=== PATIENT | female | born 2000 | race American Indian/Alaskan Native ===

== ENCOUNTER 2020-10-24 05:59 | Emergency (ER) | payer SELFPAY ==
[2020-10-24 06:07] VITALS: BP 134/82
[2020-10-24] MEDS ORDERED: ALBUTEROL 2.5 MG/3 ML NEBU IH ONE (06:08)
[2020-10-24] MEDS ORDERED: predniSONE 20 MG TAB PO ONE (06:08)
--- NOTE | 2020-10-24 06:11 | Event Note ---
ED Screening Note Date of service: 10/24/20 Time: 06:09 ED Screening Note: pt is a 20 y/o aaf with hx of asthma , states she is having sob and wheezing x 2 days worse yesterday and she is out of albuterol inhaler which she uses prn. Symptoms are rated as 4/10 at this time, and include sob, and exp wheezing. Symptoms are exacerbated by environmental exposure, symptoms are relieved by nothing. This initial assessment/diagnostic orders/clinical plan/treatment(s) is/are subject to change based on patients health status, clinical progression and re- assessment by fellow clinical providers in the ED. Further treatment and workup at subsequent clinical providers discretion. Patient/guardian urged not to elope from the ED as their condition may be serious if not clinically assessed and managed. Initial orders include:
--- NOTE | 2020-10-24 06:26 | Emergency Department Report ---
ED General Adult HPI - General Chief complaint: Dyspnea/Respdistress Stated complaint: ASTHMA Source: patient Mode of arrival: Ambulatory Limitations: No Limitations - History of Present Illness Initial comments: Pt is a 20 y/o aaf with hx of asthma , states she is having sob and wheezing x 2 days worse yesterday and she is out of albuterol inhaler which she uses prn. Symptoms are rated as 4/10 at this time, and include sob, and exp wheezing. Symptoms are exacerbated by environmental exposure, symptoms are relieved by nothing. - Related Data Previous Rx's Medication Instructions Recorded Last Taken Type Albuterol Mdi (or & Nicu Only) 2 puff IH QID PRN #8.5 gram 10/24/20 Unknown Rx [ProAir HFA Inhaler] predniSONE [Deltasone] 40 mg PO QDAY 5 Days #10 tab 10/24/20 Unknown Rx Allergies Allergy/AdvReac Type Severity Reaction Status Date / Time No Known Allergies Allergy Verified 10/24/20 06:06 ED Review of Systems ROS: Stated complaint: ASTHMA Other details as noted in HPI Constitutional: denies: chills, fever Eyes: denies: eye pain, eye discharge, vision change ENT: denies: ear pain, throat pain Respiratory: cough, shortness of breath, wheezing Cardiovascular: denies: chest pain, palpitations Endocrine: no symptoms reported Gastrointestinal: denies: abdominal pain, nausea, diarrhea Genitourinary: denies: urgency, dysuria, discharge Musculoskeletal: denies: back pain, joint swelling, arthralgia Skin: denies: rash, lesions Neurological: denies: headache, weakness, paresthesias Psychiatric: denies: anxiety, depression Hematological/Lymphatic: denies: easy bleeding, easy bruising ED Past Medical Hx - Past Medical History Previous Medical History?: Yes Hx Asthma: Yes - Surgical History Past Surgical History?: No - Social History Smoking Status: Never Smoker Substance Use Type: None - Medications Home Medications: Home Medications Medication Instructions Recorded Confirmed Last Taken Type Albuterol Mdi (or & Nicu Only) 2 puff IH QID PRN #8.5 gram 10/24/20 Unknown Rx [ProAir HFA Inhaler] predniSONE [Deltasone] 40 mg PO QDAY 5 Days #10 tab 10/24/20 Unknown Rx ED Physical Exam - General Limitations: No Limitations General appearance: alert, in no apparent distress - Head Head exam: Present: atraumatic, normocephalic - Eye Eye exam: Present: normal appearance, EOMI Pupils: Present: normal accommodation - ENT ENT exam: Present: mucous membranes moist - Neck Neck exam: Present: normal inspection, full ROM. Absent: tenderness - Respiratory Respiratory exam: Present: normal lung sounds bilaterally, wheezes (mild bilat anterior expiratory wheezing ). Absent: respiratory distress, rales, rhonchi, stridor, chest wall tenderness - Cardiovascular Cardiovascular Exam: Present: regular rate, normal rhythm, normal heart sounds. Absent: systolic murmur, diastolic murmur, rubs, gallop - GI/Abdominal GI/Abdominal exam: Present: soft, normal bowel sounds. Absent: distended, tenderness - Rectal Rectal exam: Present: deferred - Extremities Exam Extremities exam: Present: normal inspection - Back Exam Back exam: Present: normal inspection, full ROM. Absent: tenderness - Neurological Exam Neurological exam: Present: alert, oriented X3, CN II-XII intact, normal gait - Psychiatric Psychiatric exam: Present: normal affect, normal mood - Skin Skin exam: Present: warm, dry, intact, normal color. Absent: rash ED Course Vital Signs 10/24/20 06:02 Temperature 98.0 F Pulse Rate 87 Respiratory 18 Rate Blood Pressure 134/82 O2 Sat by Pulse 96 Oximetry ED Medical Decision Making - Medical Decision Making this is straight forward asthma, with mild exp wheezing, plan: short burst prednisone, refill albuterol. follow up with pcp , pt verbalized understanding of same , pt dc'd to home in stable condition at this time with no resp distress, pt is a/o x 3 ambulatory with steady gait. Critical care attestation.: If time is entered above; I have spent that time in minutes in the direct care of this critically ill patient, excluding procedure time. ED Disposition Clinical Impression: Asthma Qualifiers: Asthma severity: mild Asthma persistence: intermittent Asthma complication type: uncomplicated Qualified Code(s): J45.20 - Mild intermittent asthma, uncomplicated Disposition: DC-01 TO HOME OR SELFCARE Is pt being admited?: No Does the pt Need Aspirin: No Condition: Stable Instructions: Asthma (ED), Asthma Attack Prevention, Adult Additional Instructions: follow up with your doctor in 2-3, return to emergency if symptoms worsen. Prescriptions: predniSONE [Deltasone] 40 mg PO QDAY 5 Days #10 tab Albuterol Mdi (or & Nicu Only) [ProAir HFA Inhaler] 2 puff IH QID PRN #8.5 gram PRN Reason: Shortness Of Breath Referrals: DEZ BOUCHER MD [Staff Physician] - 3-5 Days Forms: Work/School Release Form(ED) Time of Disposition: 06:27
== END 2020-10-24 07:15 | disposition home or self-care (01) ==
LOC: ED 05:59
DX: J45.909 Unspecified asthma, uncomplicated (principal); Z79.899 Other long term (current) drug therapy
CPT/HCPCS: 94640; 99282; J7512

== ENCOUNTER 2022-01-26 11:40 | Inpatient (IN) | payer MEDICAID ==
[2022-01-26] MEDS ORDERED: LACTATED RINGERS 1,000 ML ONE (13:06)
[2022-01-26] MEDS ORDERED: TERBUTALINE 1 MG/1 ML INJ SUB-Q PRN (13:47)
[2022-01-26] MEDS ORDERED: LOPERAMIDE 2 MG CAP PO PRN (13:47)
[2022-01-26] MEDS ORDERED: ePHEDrine SULFATE 50 MG/1 ML INJ IV PRN (13:47)
[2022-01-26] MEDS ORDERED: miSOPROStol 200 MCG TAB PR PRN (13:47)
[2022-01-26] MEDS ORDERED: MINERAL OIL 30 ML ORAL LIQD PO PRN (13:47)
[2022-01-26] MEDS ORDERED: CARBOPROST TROMETHAMINE 250 MCG/1 ML INJ IM PRN (13:47)
[2022-01-26] MEDS ORDERED: NALOXONE 0.4 MG/1 ML INJ IV PRN ×2 (13:47→17:04)
[2022-01-26] MEDS ORDERED: BUTORPHANOL 2 MG/1 ML INJ IV PRN ×2 (13:47)
[2022-01-26] MEDS ORDERED: METHYLERGONOVINE MALEATE 0.2 MG/ML VIAL IM PRN (13:47)
[2022-01-26] MEDS ORDERED: PROMETHAZINE 25 MG TAB PO PRN (13:47)
[2022-01-26] MEDS ORDERED: OXYTOCIN 10 UNIT/1 ML INJ IM PRN (13:47)
[2022-01-26] MEDS ORDERED: ONDANSETRON 4 MG/2 ML INJ IV PRN ×2 (13:47→17:04)
[2022-01-26] MEDS ORDERED: ACETAMINOPHEN 325 MG TAB PO PRN ×2 (13:47→17:04)
--- NOTE | 2022-01-26 13:59 | History and Physical Report ---
History of Present Illness Date of examination: 01/26/22 Date of admission: 01/26/2022 Chief complaint: labor contractions Past History Past Medical History: asthma Past Surgical History: no surgical history Family/Genetic History: diabetes Social history: no significant social history - Obstetrical History Expected Date of Delivery: 02/02/22 Actual Gestation: 39 Week(s) 0 Day(s) : 1 Medications and Allergies Allergies Allergy/AdvReac Type Severity Reaction Status Date / Time No Known Allergies Allergy Verified 01/26/22 13:07 Home Medications Medication Instructions Recorded Confirmed Last Taken Type Albuterol Mdi (or & Nicu Only) 2 puff IH QID PRN #8.5 gram 10/24/20 Unknown Rx [ProAir HFA Inhaler] predniSONE [Deltasone] 40 mg PO QDAY 5 Days #10 tab 10/24/20 Unknown Rx - Vital Signs Vital signs: Vital Signs Pulse BP Pulse Ox 88 121/76 94 01/26/22 12:02 01/26/22 12:02 01/26/22 12:02 Temp Pulse Resp BP Pulse Ox 98.2 F 104 H 16 121/76 100 01/26/22 13:20 01/26/22 13:52 01/26/22 13:20 01/26/22 12:03 01/26/22 13:52 - Physical Exam Breasts: Positive: deferred Cardiovascular: Regular rate Lungs: Positive: Clear to auscultation Abdomen: Positive: normal appearance (gravid) Genitourinary (Female): Positive: normal external genitalia Vulva: both: normal Vagina: Positive: normal moisture Anus/Rectum: Positive: normal perianal skin Extremities: Positive: normal - Obstetrical FHR: category 2 Uterine Contraction Monitor Mode: External Cervical Dilatation: 6 Cervical Effacement Percentage: 90 station: -2 Uterine Contraction Pattern: Irregular Uterine Contraction Intensity: Strong/Firm Results Result Diagrams: 01/26/22 13:25 All other labs normal. Assessment and Plan A: IUP at 39.0 wks spontaneous labor GBS neg Hx of Asthma ( no attack in over a year) Active labor Pain not well controlled P: Admit EFM/TOCO IV fluid and medication for pain
[2022-01-26] MEDS ORDERED: OXYTOCIN DRIP 30 UNITS/500 ML BAG IV SCH ×4 (14:00→18:00)
[2022-01-26] MEDS: LACTATED RINGERS 1,000 ML IV SCH ×3 (14:09→18:41)
[2022-01-26] MEDS ORDERED: SODIUM CHLORIDE 0.9% 1000 ML 1,000 ML ONE (14:10)
[2022-01-26 14:36] LABS: Hemoglobin 11.5 gm/dl (10.1-14.3); Mean Corpuscular HGB Conc 33 % (30-34); Mean Corpuscular Volume 85 fl (79-97); Platelet Count 202 K/mm3 (140-440); Red Blood Count 4.14 M/mm3 (3.65-5.03); Red Cell Distribution Width 14.3 % (13.2-15.2)
[2022-01-26] MEDS ORDERED: LIDOCAINE (2%) 20 MG/1 ML VIAL 20 ML MDV INFILTRATI ONE (15:00)
--- NOTE | 2022-01-26 15:18 | Anesthesia Consultation ---
Anesthesia Consult and Med Hx Date of service: 01/26/22 - Airway Anesthetic Teeth Evaluation: Good ROM Head & Neck: Adequate Mental/Hyoid Distance: Adequate Mallampati Class: Class II Intubation Access Assessment: Probably Good - Pulmonary Exam CTA: Yes - Cardiac Exam Cardiac Exam: RRR - Pre-Operative Health Status ASA Pre-Surgery Classification: ASA3 Proposed Anesthetic Plan: Spinal - Pulmonary Hx Asthma: Yes (2 yrs ago) COPD: No Hx Pneumonia: No - Cardiovascular System Hx Hypertension: No - Central Nervous System Hx Seizures: No Hx Psychiatric Problems: No - Endocrine Hx Renal Disease: No Hx End Stage Renal Disease: No Hx Hypothyroidism: No Hx Hyperthyroidism: No - Hematic Hx Sickle Cell Disease: No - Other Systems Hx Obesity: Yes
--- NOTE | 2022-01-26 15:21 | Anesthesia Day of Surgery ---
Anesthesia Day of Surgery - Day of Surgery Patient Examined: Yes Patient H&P Reviewed: Yes Patient is NPO: No (Had over 8 oz of water at 1300) Beta Blockers: No Ludin's Test: N/A
[2022-01-26] MEDS ORDERED: LACTATED RINGERS 1,000 ML IV SCH (15:30)
--- NOTE | 2022-01-26 15:30 | Event Note ---
Date: 01/26/22 Called in due to variable decels and thick meconium. Overall variability good. Patient is 5ft 1inch tall. Clinical size more than 7.5 lbs. 8cm dilated. Station 0+1, boderline pelvis. Patient unable to follow instructions, including getting an epidural. Prospects of a successful vaginal delivery are very low. Plan: For delivery.
[2022-01-26] MEDS ORDERED: propofoL 200 MG/20 ML VIAL IV ONE (15:32)
[2022-01-26] MEDS ORDERED: ROCURONIUM 50 MG/5 ML INJ IV ONE (15:32)
[2022-01-26] MEDS ORDERED: PHENYLEPHRINE/NS 1,000 MCG/10 ML SYRINGE (OR USE) IV ONE (15:32)
[2022-01-26] MEDS ORDERED: LIDOCAINE PF 100 MG/5 ML (CARDIAC SYRINGE) IV ONE (15:32)
[2022-01-26] MEDS ORDERED: SUCCINYLCHOLINE CHLORIDE 200 MG/10 ML INJ MDV ONE (15:32)
[2022-01-26] MEDS ORDERED: ONDANSETRON 4 MG/2 ML INJ ONE (15:32)
[2022-01-26] MEDS ORDERED: ePHEDrine SULFATE 50 MG/1 ML INJ ONE (15:32)
[2022-01-26] MEDS ORDERED: dexAMETHasone 20 MG/5 ML VIAL ONE (15:32)
[2022-01-26] MEDS ORDERED: BICITRA ORAL LIQD 30ML PO ONE (16:00)
[2022-01-26] MEDS ORDERED: METOCLOPRAMIDE 10 MG/2 ML INJ IV ONE (16:00)
[2022-01-26] MEDS ORDERED: ceFAZolin/Water 2 GM/20 ML 2 GM/20 ML SYRINGE IV NR (16:00)
[2022-01-26] MEDS ORDERED: FAMOTIDINE 20 MG/2 ML INJ IV ONE (16:00)
[2022-01-26] MEDS ORDERED: SODIUM CHLORIDE 0.9% IRR 1,500 ML BOTTLE IR ONE (16:05)
[2022-01-26] MEDS ORDERED: WATER FOR IRRIG STERILE 1,500 ML BOTTLE IR ONE (16:05)
[2022-01-26] MEDS ORDERED: ceFAZolin/STERILE WATER 2 GM/20 ML SYRINGE IV ONE (16:05)
[2022-01-26] MEDS ORDERED: WITCH HAZEL/ GLYCERIN PAD TP PRN (17:04)
[2022-01-26] MEDS ORDERED: KETOROLAC 30 MG/1 ML INJ IV PRN (17:04)
[2022-01-26] MEDS ORDERED: MORPHINE 4 MG/1 ML INJ IV PRN (17:04)
[2022-01-26] MEDS ORDERED: IBUPROFEN 600 MG TAB PO PRN (17:04)
[2022-01-26] MEDS ORDERED: LANOLIN/ZINC/DIMETHICONE (LANSINOH) 7 GM TP PRN (17:04)
--- NOTE | 2022-01-26 17:12 | Operative Report ---
Operative Report Operative Report: Date of surgery: January 27, 2020 Preoperative diagnoses: intolerance of labor, short stature, cephalopelvic disproportion Postoperative diagnoses: The same. Operation: Lower segment transverse delivery Surgeon:Audie Piedra MD Leaf Binner: Jorge Harper CRNA Anesthesia: Spinal block Estimated blood loss:410 mL Complications: None Findings: There was a live baby boy in occiput posterior. weight 6 pounds 9 ounces. Apgars 8/9. The amniotic fluid was thick with meconium. The ovaries and fallopian tubes as well as the uterus were grossly normal. Procedure in detail: The patient was taken to the operating room and given a spinal block. Patient was placed in the straight supine position and a Schaefer catheter was inserted. The patient was prepped in the abdomen. The drapes were placed. A timeout was done. With the go ahead from the gospel worker, a Pfannenstiel incision was made. This incision was carried across the subcutaneous layer to the fascia which was also divided transversely. The recti abdominis muscle flaps were stripped from the fascia using a combination of blunt and sharp dissections. The muscles were in the midline to gain access to the anterior parietal peritoneum which was divided after excluding any underlying viscera. The access to the p eritoneal cavity was then widened by manual stretching. The bladder blade was applied. The utero vesicle peritoneal flap was divided transversely allowing the bladder to be displaced caudally. The uterine incision was placed in the lower segment transversely. The uterine incision was carried to the decidual layer. The uterine incision was extended on both sides using the bandage scissors. The amniotic sac was ruptured with clear fluid. The head was lifted out of the false maternal pelvis and delivered through the incision using fundal pressure. The airways were bulb suctioned beginning with the mouth. Continuing fundal pressure combined with traction on the mandibular processes of the jaw delivered the rest of the baby. The umbilical cord was double clamped and divided. The baby was carefully transferred to the pediatric team. The placenta was manually removed from the uterine cavity. The uterine cavity was explored and was empty of any placental remnants. The uterine incision was repaired in 2 layers with #1 Vicryl. The surgical line on the uterus was hemostatic. Blood and clots were cleared from the peritoneal cavity. The anterior parietal peritoneum was repaired with #1 Vicryl. The fascia was repaired with #1 Vicryl. The subcutaneous layer was made hemostatic using the Bovie before the skin was closed subcuticularly with 4-0 Vicryl. There were no complications. The estimated blood loss was 410 mL. All sponges and instrument counts were correct. Patient was safely transferred to the recovery room.
--- NOTE | 2022-01-26 17:36 | Progress Note ---
Spinal Anesthesia Block - Spinal Anesthesia Block Start Time: 15:55 Stop Time: 15:57 Performed by:: LILIYA MARROQUIN Procedure: Spinal H&P, labs were reviewed. Patient ID confirmed, all questions and concerns were answered, and consent was signed. Timeout was performed at bedside. Patient in sitting position. Sterile prep and drape was performed. 3ml of 1% lidocaine skin wheal at L3- L4 interspace. 24G PENCAN spinal needle was advanced. Clear CSF. Injected Bupivacaine 0.75% 1.6ml and 0.05ml of Precedex in the spinal space. Negative paresthesia, negative blood. Patient tolerated procedure. Pt placed in supine position with LEONCIO.
--- NOTE | 2022-01-26 17:52 | Event Note ---
Date: 01/26/22 (1500) Called into room for current decel and recent multiple variables. VE: 8cm/90/-2 BBW, AROM heavy meconium noted, ISE and IUPC placed, fluid bolus, O2 NR, and amnioinfusion. reassurance given to patient, informed of all procedures and why. Baby now recovering. Dr. Piedra called and informed
[2022-01-26] MEDS: MORPHINE 2 MG/1 ML INJ IV PRN (22:36)
[2022-01-27] MEDS: KETOROLAC 30 MG/1 ML INJ IV PRN ×2 (00:36→14:41)
[2022-01-27 05:41] LABS: Hematocrit 30.6 % (30.3-42.9); Hemoglobin 10.2 gm/dl (10.1-14.3)
[2022-01-27] MEDS: MORPHINE 2 MG/1 ML INJ IV PRN (08:41)
--- NOTE | 2022-01-27 09:41 | Progress Note ---
Assessment and Plan POD#1 C/S doing well. 1. Remove the dressing tomorrow and routine postop care 2. All questions encouraged and answered Subjective Date of service: 01/27/22 Principal diagnosis: POD#1 C/S Interval history: pt states her pain is controlled with meds. Pt admits to flatus. Tolerating diet. Voiding without difficulty. pt also trying to breast feed. Vag bleed less than a period Objective - Constitutional Vitals: Vital Signs - 12hr 01/26/22 01/27/22 01/27/22 22:36 00:36 00:58 Temperature 98.0 F Pulse Rate 89 Respiratory 16 18 20 Rate Blood Pressure 121/79 Blood Pressure [Right] O2 Sat by Pulse 98 Oximetry 01/27/22 01/27/22 01/27/22 04:20 08:13 08:41 Temperature 98.2 F 98.3 F Pulse Rate 92 H 95 H Respiratory 18 20 16 Rate Blood Pressure 119/76 Blood Pressure 132/68 [Right] O2 Sat by Pulse 100 97 Oximetry General appearance: Present: no acute distress - Neck Neck: normal ROM - Respiratory Respiratory effort: normal - Cardiovascular Rhythm: regular Extremities: No edema - Gastrointestinal General gastrointestinal: Present: soft, non-tender, other (Incision with Dressing C/D/I) - Genitourinary Female genitourinary: other (Fundus firm 1cm below the umbilicus; no tenderness. Lochia small) - Integumentary Integumentary: warm, dry - Neurologic Neurologic: moves all extremities - Psychiatric Psychiatric: cooperative - Labs CBC & Chem 7: 01/27/22 05:25 Labs: Abnormal lab results 01/26/22 Range/Units 13:25 WBC 12.1 H (4.5-11.0) K/mm3 Medications & Allergies - Medications Allergies/Adverse Reactions: Allergies No Known Allergies Allergy (Verified 01/26/22 13:07) Home Medications: Home Medications Medication Instructions Recorded Confirmed Last Taken Type Albuterol Mdi (or & Nicu Only) 2 puff IH QID PRN #8.5 gram 10/24/20 Unknown Rx [ProAir HFA Inhaler] predniSONE [Deltasone] 40 mg PO QDAY 5 Days #10 tab 10/24/20 Unknown Rx Active Medications: Generic Name Dose Route Start Last Admin Trade Name Freq PRN Reason Stop Dose Admin Acetaminophen 650 mg 01/26/22 17:04 Acetaminophen 325 Mg Tab PO Q4H PRN Fever >100.5/BROWNING Hydrocodone Bitart/Acetaminophen 1 each 01/26/22 17:04 Hydrocodone/Acetaminophen 5-325 Mg Tab PO Q6H PRN Pain, Moderate (4-6) Oxytocin/Sodium Chloride 30 units in 500 mls @ 40 mls/hr 01/26/22 18:00 Pitocin/Ns 30 Unit/500ml IV TITR ARIANA Protocol Ibuprofen 600 mg 01/26/22 17:04 Ibuprofen 600 Mg Tab PO Q6H PRN Pain, Mild (1-3) Ibuprofen 800 mg 01/26/22 17:04 Ibuprofen 800 Mg Tab PO Q6H PRN Pain, Moderate (4-6) Ketorolac Tromethamine 15 mg 01/26/22 17:04 Ketorolac 30 Mg/1 Ml Inj IV 01/31/22 17:03 Q6H PRN Pain, Mild (1-3) Ketorolac Tromethamine 30 mg 01/26/22 17:04 01/27/22 00:36 Ketorolac 30 Mg/1 Ml Inj IV 01/31/22 17:03 30 mg Q6H PRN Administration Pain, Moderate (4-6) Morphine Sulfate 4 mg 01/26/22 17:04 Morphine 4 Mg/1 Ml Inj IV Q4H PRN Pain , Severe (7-10) Morphine Sulfate 2 mg 01/26/22 17:04 01/27/22 08:41 Morphine 2 Mg/1 Ml Inj IV 2 mg Q4H PRN Administration Pain, Moderate (4-6) Multi-Ingredient Ointment 1 applic 01/26/22 17:04 Lanolin/Zinc/Dimethicone (Lansinoh) 7 Gm TP PRN PRN dryness/cracking Multivitamins/Iron/Calcium 1 each 01/27/22 10:00 [id number] Fumarate-Folic Acid Vit Tab PO QDAY ARIANA Naloxone HCl 0.1 mg 01/26/22 17:04 Naloxone 0.4 Mg/1 Ml Inj IV Q2MIN PRN Res Rate </= 8 or 02 SAT < 92% Ondansetron HCl 4 mg 01/26/22 17:04 Ondansetron 4 Mg/2 Ml Inj IV Q8H PRN Nausea And Vomiting Sodium Chloride 10 ml 01/26/22 18:00 Sodium Chloride 0.9% 10 Ml Flush Syringe IV 02/05/22 23:59 PRN NR Witch Sarah/Glycerin 1 each 01/26/22 17:04 Witch Sarah/ Glycerin Pad TP PRN PRN Hemorrhoids/cleansing/soothing
[2022-01-27] MEDS: PRENATAL VIT27-FE FUMARATE-FOLIC ACID VIT TAB PO SCH (09:50)
[2022-01-27] MEDS: HYDROcodone/ACETAMINOPHEN 5-325 MG TAB PO PRN ×2 (11:24→17:22)
[2022-01-27] MEDS: IBUPROFEN 800 MG TAB PO PRN (22:30)
[2022-01-28] MEDS: HYDROcodone/ACETAMINOPHEN 5-325 MG TAB PO PRN ×2 (05:54→12:02)
[2022-01-28] MEDS: IBUPROFEN 800 MG TAB PO PRN ×2 (09:17→17:14)
[2022-01-28] MEDS: PRENATAL VIT27-FE FUMARATE-FOLIC ACID VIT TAB PO SCH (12:02)
--- NOTE | 2022-01-28 15:59 | Progress Note ---
Assessment and Plan POD#2 C/S with moist steristrips and endomyometritis 1. Discussed with pt that I would recommend oral antibiotics, change steristrips and check CBC and pt agrees 2. Will discharge home tomorrow if current signs on wound and endomyometritis improve 3. Pt taught how to keep wound clean and dry All questions encouraged and answered Subjective Date of service: 01/28/22 Principal diagnosis: POD#2 C/S with endomyometritis Interval history: Pt would like to go home today. Voiding without difficulty; pt is breast feeding and pain controlled with meds. Denies fever or chills Objective - Constitutional Vitals: Vital Signs - 12hr 01/28/22 01/28/22 01/28/22 05:52 08:25 08:29 Temperature 98.2 F Pulse Rate 98 H Respiratory 20 Rate Blood Pressure 133/88 [Right] O2 Sat by Pulse 100 Oximetry O2 Sat by Pulse 98 98 Oximetry [ Anterior Bilateral Throughout] 01/28/22 14:18 Temperature Pulse Rate Respiratory Rate Blood Pressure [Right] O2 Sat by Pulse Oximetry O2 Sat by Pulse 98 Oximetry [ Anterior Bilateral Throughout] General appearance: Present: no acute distress - Neck Neck: normal ROM - Respiratory Respiratory effort: normal - Breasts Breasts: deferred - Cardiovascular Rhythm: other (maternal tacchycardia noted) Extremities: No edema - Gastrointestinal General gastrointestinal: Present: soft, other (Incision with steristrips moist and blood stained) - Genitourinary Female genitourinary: other (Fundus firm and tender 1cm below the umbilicus) - Labs CBC & Chem 7: 01/27/22 05:25 Medications & Allergies - Medications Allergies/Adverse Reactions: Allergies No Known Allergies Allergy (Verified 01/26/22 13:07) Home Medications: Home Medications Medication Instructions Recorded Confirmed Last Taken Type Albuterol Mdi (or & Nicu Only) 2 puff IH QID PRN #8.5 gram 10/24/20 01/27/22 Unknown Rx [ProAir HFA Inhaler] predniSONE [Deltasone] 40 mg PO QDAY 5 Days #10 tab 10/24/20 01/27/22 Unknown Rx Active Medications: Generic Name Dose Route Start Last Admin Trade Name Freq PRN Reason Stop Dose Admin Acetaminophen 650 mg 01/26/22 17:04 Acetaminophen 325 Mg Tab PO Q4H PRN Fever >100.5/BROWNING Hydrocodone Bitart/Acetaminophen 1 each 01/26/22 17:04 01/28/22 12:02 Hydrocodone/Acetaminophen 5-325 Mg Tab PO 1 each Q6H PRN Administration Pain, Moderate (4-6) Oxytocin/Sodium Chloride 30 units in 500 mls @ 40 mls/hr 01/26/22 18:00 Pitocin/Ns 30 Unit/500ml IV TITR ARIANA Protocol Ibuprofen 600 mg 01/26/22 17:04 Ibuprofen 600 Mg Tab PO Q6H PRN Pain, Mild (1-3) Ibuprofen 800 mg 01/26/22 17:04 01/28/22 09:17 Ibuprofen 800 Mg Tab PO 800 mg Q6H PRN Administration Pain, Moderate (4-6) Ketorolac Tromethamine 15 mg 01/26/22 17:04 Ketorolac 30 Mg/1 Ml Inj IV 01/31/22 17:03 Q6H PRN Pain, Mild (1-3) Ketorolac Tromethamine 30 mg 01/26/22 17:04 01/27/22 14:41 Ketorolac 30 Mg/1 Ml Inj IV 01/31/22 17:03 30 mg Q6H PRN Administration Pain, Moderate (4-6) Morphine Sulfate 4 mg 01/26/22 17:04 Morphine 4 Mg/1 Ml Inj IV Q4H PRN Pain , Severe (7-10) Morphine Sulfate 2 mg 01/26/22 17:04 01/27/22 08:41 Morphine 2 Mg/1 Ml Inj IV 2 mg Q4H PRN Administration Pain, Moderate (4-6) Multi-Ingredient Ointment 1 applic 01/26/22 17:04 Lanolin/Zinc/Dimethicone (Lansinoh) 7 Gm TP PRN PRN dryness/cracking Multivitamins/Iron/Calcium 1 each 01/27/22 10:00 01/28/22 12:02 [id number] Fumarate-Folic Acid Vit Tab PO 1 each QDAY ARIANA Administration Naloxone HCl 0.1 mg 01/26/22 17:04 Naloxone 0.4 Mg/1 Ml Inj IV Q2MIN PRN Res Rate </= 8 or 02 SAT < 92% Ondansetron HCl 4 mg 01/26/22 17:04 Ondansetron 4 Mg/2 Ml Inj IV Q8H PRN Nausea And Vomiting Sodium Chloride 10 ml 01/26/22 18:00 Sodium Chloride 0.9% 10 Ml Flush Syringe IV 02/05/22 23:59 PRN NR Witch Sarah/Glycerin 1 each 01/26/22 17:04 Witch Sarah/ Glycerin Pad TP PRN PRN Hemorrhoids/cleansing/soothing
[2022-01-28] MEDS: AMOXICILLIN/K CLAV 875/125MG TAB PO SCH (17:14)
[2022-01-28] MEDS: GENTAMICIN/NS 120MG/100ML 120 MG/100 ML BAG IV SCH (18:00)
[2022-01-28 19:58] LABS: Basophils % (Auto) 0.2 % (0.0-1.8); Eosinophils # (Auto) 0.2 K/mm3 (0.0-0.4); Eosinophils % (Auto) 1.8 % (0.0-4.3); Hemoglobin 10.3 gm/dl (10.1-14.3); Lymphocytes # (Auto) 2.4 K/mm3 (1.2-5.4); Lymphocytes % (Auto) 26.3 % (13.4-35.0); Mean Corpuscular HGB Conc 33 % (30-34); Mean Corpuscular Volume 85 fl (79-97); Monocytes # (Auto) 0.6 K/mm3 (0.0-0.8); Monocytes % (Auto) 6.6 % (0.0-7.3); Platelet Count 210 K/mm3 (140-440); Red Blood Count 3.64 M/mm3 (3.65-5.03); Red Cell Distribution Width 14.8 % (13.2-15.2)
[2022-01-29] MEDS: HYDROcodone/ACETAMINOPHEN 5-325 MG TAB PO PRN (01:19)
[2022-01-29] MEDS ORDERED: LACTATED RINGERS 1,000 ML IV SCH (03:15)
[2022-01-29] MEDS: GENTAMICIN/NS 120MG/100ML 120 MG/100 ML BAG IV SCH ×2 (03:32→11:44)
[2022-01-29] MEDS: PRENATAL VIT27-FE FUMARATE-FOLIC ACID VIT TAB PO SCH (11:43)
[2022-01-29] MEDS: IBUPROFEN 800 MG TAB PO PRN (11:43)
[2022-01-29] MEDS: AMOXICILLIN/K CLAV 875/125MG TAB PO SCH (11:43)
--- NOTE | 2022-01-29 15:51 | Progress Note ---
Assessment and Plan POD#3 C/S with endomyometritis resolving well and wound healing appropriately without moisture 1. Discharge home on pain med and augmentin x5 days and follow up in clinic in 1wk for check up Plan of care discussed, shared decision making and pt agrees Subjective Date of service: 01/29/22 Principal diagnosis: POD#3 C/S with endomyometritis resolving Interval history: pt states she feels much better, denies pelvic pain. Voiding well and ready to go home. Vag bleed like a period Objective - Constitutional Vitals: Vital Signs - 12hr 01/29/01/29/22 09:01 09:46 Temperature 98.8 F Pulse Rate 89 Respiratory 20 Rate Blood Pressure 130/82 [Right] O2 Sat by Pulse 99 Oximetry O2 Sat by Pulse 99 Oximetry [ Anterior Bilateral Throughout] General appearance: Present: no acute distress - Neck Neck: normal ROM - Respiratory Respiratory effort: normal - Breasts Breasts: deferred - Cardiovascular Rhythm: regular Extremities: No edema - Gastrointestinal General gastrointestinal: Present: soft, non-tender, other (Incision with steristrips replaced by me yesterday now C/D/I without any drainage) - Genitourinary Female genitourinary: other (Fundus non-tender, 2cm below umbilicus) - Neurologic Neurologic: moves all extremities - Psychiatric Psychiatric: cooperative - Labs CBC & Chem 7: 01/28/22 19:36 Labs: Abnormal lab results 01/28/22 Range/Units 19:36 RBC 3.64 L (3.65-5.03) M/mm3 Medications & Allergies - Medications Allergies/Adverse Reactions: Allergies No Known Allergies Allergy (Verified 01/26/22 13:07) Home Medications: Home Medications Medication Instructions Recorded Confirmed Last Taken Type Albuterol Mdi (or & Nicu Only) 2 puff IH QID PRN #8.5 gram 10/24/20 01/27/22 Unknown Rx [ProAir HFA Inhaler] predniSONE [Deltasone] 40 mg PO QDAY 5 Days #10 tab 10/24/20 01/27/22 Unknown Rx Active Medications: Generic Name Dose Route Start Last Admin Trade Name Freq PRN Reason Stop Dose Admin Acetaminophen 650 mg 01/26/22 17:04 Acetaminophen 325 Mg Tab PO Q4H PRN Fever >100.5/BROWNING Hydrocodone Bitart/Acetaminophen 1 each 01/26/22 17:04 01/29/22 01:19 Hydrocodone/Acetaminophen 5-325 Mg Tab PO 1 each Q6H PRN Administration Pain, Moderate (4-6) Amoxicillin/Clavulanate Potassium 1 each 01/28/22 17:00 01/29/22 11:43 Amoxicillin/K Clav 875/125mg Tab PO 1 each Q12HR ARIANA Administration Protocol Oxytocin/Sodium Chloride 30 units in 500 mls @ 40 mls/hr 01/26/22 18:00 Pitocin/Ns 30 Unit/500ml IV TITR ARIANA Protocol Gentamicin Sulfate/Sodium Chloride 120 mg in 100 mls @ 200 mls/hr 01/28/22 17:00 01/29/22 12:14 Gentamicin/Ns 120mg/100ml IV 01/29/22 17:29 Infused Q8H ARIANA Infusion Protocol Lactated Ringer's 1,000 mls @ 125 mls/hr 01/29/22 03:15 01/29/22 03:32 Lactated Ringers IV 125 mls/hr DIRECT ARIANA Administration Ibuprofen 600 mg 01/26/22 17:04 Ibuprofen 600 Mg Tab PO Q6H PRN Pain, Mild (1-3) Ibuprofen 800 mg 01/26/22 17:04 01/29/22 11:43 Ibuprofen 800 Mg Tab PO 800 mg Q6H PRN Administration Pain, Moderate (4-6) Ketorolac Tromethamine 15 mg 01/26/22 17:04 Ketorolac 30 Mg/1 Ml Inj IV 01/31/22 17:03 Q6H PRN Pain, Mild (1-3) Ketorolac Tromethamine 30 mg 01/26/22 17:04 01/27/22 14:41 Ketorolac 30 Mg/1 Ml Inj IV 01/31/22 17:03 30 mg Q6H PRN Administration Pain, Moderate (4-6) Morphine Sulfate 4 mg 01/26/22 17:04 Morphine 4 Mg/1 Ml Inj IV Q4H PRN Pain , Severe (7-10) Morphine Sulfate 2 mg 01/26/22 17:04 01/27/22 08:41 Morphine 2 Mg/1 Ml Inj IV 2 mg Q4H PRN Administration Pain, Moderate (4-6) Multi-Ingredient Ointment 1 applic 01/26/22 17:04 Lanolin/Zinc/Dimethicone (Lansinoh) 7 Gm TP PRN PRN dryness/cracking Multivitamins/Iron/Calcium 1 each 01/27/22 10:00 01/29/22 11:43 [id number] Fumarate-Folic Acid Vit Tab PO 1 each QDAY ARIANA Administration Naloxone HCl 0.1 mg 01/26/22 17:04 Naloxone 0.4 Mg/1 Ml Inj IV Q2MIN PRN Res Rate </= 8 or 02 SAT < 92% Ondansetron HCl 4 mg 01/26/22 17:04 Ondansetron 4 Mg/2 Ml Inj IV Q8H PRN Nausea And Vomiting Sodium Chloride 10 ml 01/26/22 18:00 Sodium Chloride 0.9% 10 Ml Flush Syringe IV 02/05/22 23:59 PRN NR Witch Sarah/Glycerin 1 each 01/26/22 17:04 Witch Sarah/ Glycerin Pad TP PRN PRN Hemorrhoids/cleansing/soothing
--- NOTE | 2022-01-29 15:52 | Discharge Summary ---
Providers - Providers Date of Admission: 01/26/22 14:25 Date of discharge: 01/29/22 Attending physician: MIRLANDE MCKOY MD 01/27/22 08:00 Consult to Motor Room Controller [CONS] Routine Reason For Exam: first time mom Primary care physician: WADE BAIN Hospitalization Reason for admission: IUP at term Delivery: Procedure: section Episiotomy: none Laceration: none Incision: normal, intact Other procedures: none complications: other (endomyometritis with moist wound that resolved with IV antibiotics) Discharge diagnosis: IUP at term delivered baby: male Hospital course: Pt had induction of labor, then delivery for arrest of dilatation. course with endomyometritis and moist wound that resolved with IV antibiotics and pt discharged home on post op day#3 Condition at discharge: Good Disposition: 01 HOME / SELF CARE / HOMELESS - Discharge Diagnoses (1) delivery delivered Status: Acute (2) Term delivered Status: Acute (3) Acute endomyometritis Status: Acute Plan - Discharge Medications Prescriptions: Amoxicillin/K Clav Tab [Augmentin 875 mg] 1 tab PO Q12HR 7 Days #14 tab Ibuprofen [Motrin] 800 mg PO Q8HR PRN 21 Days #40 tablet PRN Reason: Pain, Moderate (4-6) oxyCODONE /ACETAMINOPHEN [Percocet 5/325] 1 tab PO Q4HR PRN 21 Days #30 tab PRN Reason: Pain , Severe (7-10) - Provider Discharge Summary Additional instructions: [] Smoking cessation referral if applicable(refer to patient education folder for contact #) [] Refer to [facility] Booklet Call your doctor immediately for: * Fever > 100.5 * Heavy vaginal bleeding ( >1 pad per hour) * Severe persistent headache * Shortness of breath * Reddened, hot, painful area to leg or breast * Drainage or odor from incision. * Keep incision clean and dry at all times and follow doctor's instructions regarding bathing/showering - Follow up plan Follow up: WADE BAIN MD [Primary Care Provider] - 7 Days
[2022-01-29 17:04] VITALS: BP 128/77
== END 2022-01-29 17:38 | disposition home or self-care (01) | DRG 765 ==
LOC: TRG 11:40 → APU 11:40 → LD 13:06 → TRG 13:49 → LD 14:25 → APU 15:51 → OB 18:14
PROVIDERS: ADMIT Obstetrics & Gynecology; ATTEND Obstetrics & Gynecology
PROC: 10D00Z1 Extraction of Products of Conception, Low, Open Approach (ICD-10-PCS; principal; 2022-01-26)
DX: O33.9 Maternal care for disproportion, unspecified (principal); O86.12 Endometritis following delivery; O77.0 Labor and delivery complicated by meconium in amniotic fluid; O99.52 Diseases of the respiratory system complicating childbirth; O62.1 Secondary uterine inertia; J45.909 Unspecified asthma, uncomplicated; O99.214 Obesity complicating childbirth; Z20.822 Contact with and (suspected) exposure to COVID-19; Z3A.39 39 weeks gestation of pregnancy; Z37.0 Single live birth
CPT/HCPCS: 36415; 85014; 85018; 85025; 85027; 86850; 86900; 86901; 88307; G0378; J3490; J0330; J0690; J1100; J1580; J1885; J2001; J2270; J2370; J2405; J2704; J2765; J7120; U0003